=== PATIENT | male | born 1960 | race African-American/Black ===

== ENCOUNTER 2020-05-03 18:47 | Emergency (ER) | payer OTHER ==
[~2020-05-03] VITALS: Ht 180.3 cm; Wt 73.5 kg
[2020-05-03 19:25] VITALS: BP 134/100
--- NOTE | 2020-05-03 20:03 | Diagnostic Imaging Report ---
EXAM: XR Chest, 1 View CLINICAL HISTORY: COUGH TECHNIQUE: Frontal view of the chest. COMPARISON: Chest radiograph 12/28/2014. FINDINGS: Lungs: Mild right basilar opacity. Pleural space: Unremarkable. No pneumothorax. Heart: Unremarkable. No cardiomegaly. Mediastinum: Unremarkable. Bones/joints: Median sternotomy changes. Upper abdomen: Redemonstration of multiple small rounded metallic densities overlying the chest and upper abdomen. IMPRESSION: Mild right basilar opacity may represent atelectasis and/or developing infectious/inflammatory process.
[2020-05-03 20:13] LABS: HEMATOCRIT 37.9 % (42.0-52.0); HEMOGLOBIN 14.1 G/DL (14.2-18.0); MEAN CORPUSCULAR VOLUME 91 FL (80-99); PLATELET COUNT 266 K/UL (150-450); RED BLOOD COUNT 4.16 M/UL (4.70-6.10); RED CELL DISTRIBUTION WIDTH 12.9 % (11.6-14.8); WHITE BLOOD COUNT 19.5 K/UL (4.8-10.8)
[2020-05-03] MEDS ORDERED: Azithromycin 500 MG in NS 275 ML IV ONE (21:00)
[2020-05-03] MEDS ORDERED: Albuterol/Ipratropium 3ml neb HHN ONE (21:00)
[2020-05-03] MEDS ORDERED: cefTRIAXone 1 GM in NS 55 ML IVPB ONE (21:00)
[2020-05-03 21:05] LABS: ALANINE AMINOTRANSFERASE 31 U/L (12-78); ALBUMIN 3.4 G/DL (3.4-5.0); ALBUMIN/GLOBULIN RATIO 0.8 (1.0-2.7); ALKALINE PHOSPHATASE 90 U/L (46-116); ANION GAP 8 mmol/L (5-15); ASPARTATE AMINO TRANSFERASE 21 U/L (15-37); BILIRUBIN,TOTAL 0.6 MG/DL (0.2-1.0); BLOOD UREA NITROGEN 10 mg/dL (7-18); CALCIUM 8.7 MG/DL (8.5-10.1); CARBON DIOXIDE 32 MMOL/L (21-32); CHLORIDE 93 MMOL/L (98-107); CKMB 0.8 NG/ML (0.0-3.6); CREATINE KINASE 102 U/L (26-308); CREATININE 1.1 MG/DL (0.55-1.30); PHOSPHORUS 2.9 MG/DL (2.5-4.9); SODIUM 133 MMOL/L (136-145)
[2020-05-03 21:06] LABS: POTASSIUM 2.7 MMOL/L (3.5-5.1)
[2020-05-03] MEDS ORDERED: Vancomycin 1.5 GM in NS 275 ML IVPB ONE (21:15)
--- NOTE | 2020-05-03 22:17 | Emergency Room Report ---
History of Present Illness General Chief Complaint: Flu Like Symptoms Source: Patient Present Illness HPI Patient is a 59-year-old male presents for increased generalized body aches and chills. Gradual onset of symptoms today. Reports having increased cough. He states he had increased body aches. Denies any vomiting or abdominal pain. History is markedly limited by poor historian. Allergies: Coded Allergies: No Known Allergies (Unverified , 12/28/14) COVID-19 Screening Contact w/high risk pt: No Experienced COVID-19 symptoms?: Yes COVID-19 Testing performed PROJ ENGINEER: No Patient History Past Medical History: see triage record Reviewed Nursing Documentation: PMH: Agreed; PSxH: Agreed Nursing Documentation-PMH Past Medical History: No Stated History Review of Systems All Other Systems: limited - Review of systems: Review systems is limited by patient's being a poor historian Physical Exam Vital Signs Date Time Temp Pulse Resp B/P (MAP) Pulse Ox O2 Delivery O2 Flow Rate FiO2 05/03/20 19:00 100.4 117 20 163/86 (111) 93 Room Air 05/03/20 20:59 21 Sp02 EP Interpretation: reviewed, normal General Appearance: normal inspection, alert, GCS 15 Head: atraumatic ENT: normal ENT inspection, hearing grossly normal, normal voice Neck: normal inspection, full range of motion, supple, no bony tend Respiratory: normal inspection, lungs clear, normal breath sounds, no respiratory distress, no retraction, no wheezing Cardiovascular #1: no edema, tachycardia, systolic murmur Gastrointestinal: normal inspection, normal bowel sounds, non tender, soft, no guarding, no hernia Genitourinary: no CVA tenderness Musculoskeletal: normal inspection, back normal, normal range of motion Neurologic: alert, motor strength/tone normal, front desk host III-XII nml as tested, oriented x3, responsive, speech normal, normal inspection Psychiatric: normal inspection, judgement/insight normal, mood/affect normal Skin: no rash Medical Decision Making Diagnostic Impression: Primary Impression: Acute febrile illness Additional Impressions: Sepsis Lactic acidosis Pneumonia Hypokalemia ER Course Patient present for generalized body aches and chills. Differential diagnosis include was not limited to coronavirus infection, pneumonia, endocarditis, urinary tract infection among others. Because of complexity of patient's case laboratory tests and imaging studies were ordered. Patient noted to have elevated white blood count 19,000 associated with elevated lactic acid level. Patient started IV fluids as well as IV antibiotics. EKG interpreted by nm showed sinus tachycardia without any acute ST or T wave changes noted. Chest x- ray read by radiology showed patchy right-sided infiltrate without evidence of pleural effusion. Patient was discussed with Dr. Porras at [facility]. Patient be transferred to [place] for further management. Coronavirus testing was negative. Patient was endorsed to Dr. Coles pending repeat lactic acid level. Labs Test 05/03/20 19:50 White Blood Count 19.5 K/UL (4.8-10.8) Red Blood Count 4.16 M/UL (4.70-6.10) Hemoglobin 14.1 G/DL (14.2-18.0) Hematocrit 37.9 % (42.0-52.0) Mean Corpuscular Volume 91 FL (80-99) Mean Corpuscular Hemoglobin 33.9 PG (27.0-31.0) Mean Corpuscular Hemoglobin Concent 37.2 G/DL (32.0-36.0) Red Cell Distribution Width 12.9 % (11.6-14.8) Platelet Count 266 K/UL (150-450) Mean Platelet Volume 7.9 FL (6.5-10.1) Neutrophils (%) (Auto) % (45.0-75.0) Lymphocytes (%) (Auto) % (20.0-45.0) Monocytes (%) (Auto) % (1.0-10.0) Eosinophils (%) (Auto) % (0.0-3.0) Basophils (%) (Auto) % (0.0-2.0) Sodium Level 133 MMOL/L (136-145) Potassium Level 2.7 MMOL/L (3.5-5.1) Chloride Level 93 MMOL/L (98-107) Carbon Dioxide Level 32 MMOL/L (21-32) Anion Gap 8 mmol/L (5-15) Blood Urea Nitrogen 10 mg/dL (7-18) Creatinine 1.1 MG/DL (0.55-1.30) Estimat Glomerular Filtration Rate > 60 mL/min (>60) Glucose Level 122 MG/DL (74-106) Lactic Acid Level 2.30 mmol/L (0.4-2.0) Calcium Level 8.7 MG/DL (8.5-10.1) Phosphorus Level 2.9 MG/DL (2.5-4.9) Magnesium Level 2.0 MG/DL (1.8-2.4) Total Bilirubin 0.6 MG/DL (0.2-1.0) Aspartate Amino Transf (AST/SGOT) 21 U/L (15-37) Alanine Aminotransferase (ALT/SGPT) 31 U/L (12-78) Alkaline Phosphatase 90 U/L (46-116) Total Creatine Kinase 102 U/L (26-308) Creatine Kinase MB 0.8 NG/ML (0.0-3.6) Creatine Kinase MB Relative Index 0.7 Troponin I 0.000 ng/mL (0.000-0.056) Total Protein 7.5 G/DL (6.4-8.2) Albumin 3.4 G/DL (3.4-5.0) Globulin 4.1 g/dL Albumin/Globulin Ratio 0.8 (1.0-2.7) Serum Alcohol 27 mg/dL EKG Diagnostic Results Rate: tachycardiac Last Vital Signs Date Time Temp Pulse Resp B/P (MAP) Pulse Ox O2 Delivery O2 Flow Rate FiO2 05/03/20 20:59 110 27 100 Room Air 21 105 28 99 05/03/20 19:25 100.4 134/100 Status: unchanged Disposition: SHORT-TERM HOSP Condition: Stable Referrals: NON PHYSICIAN (PCP) Xander Jamison MD May 03, 2020 22:17
[2020-05-03 22:30] VITALS: BP 124/62
[2020-05-03 22:45] LABS: BILIRUBIN, URINE NEGATIVE (NEGATIVE); GLUCOSE, URINE (UA) NEGATIVE (NEGATIVE); KETONES,URINE NEGATIVE (NEGATIVE); LEUKOCYTE ESTERASE ,URINE 2+ (NEGATIVE); NITRITE,URINE NEGATIVE (NEGATIVE); PH,URINE 6 (4.5-8.0); PROTEIN,URINE 1+ (NEGATIVE); UROBILINOGEN,URINE 4 MG/DL (0.0-1.0)
[2020-05-03 22:46] LABS: APPEARANCE,URINE SLIGHTLY CLOUDY; COLOR,URINE YELLOW
[2020-05-04 00:20] VITALS: BP 130/59
[2020-05-04] MEDS ORDERED: Acetaminophen 500mg (ES) tab ORAL ONE (00:30)
[2020-05-04 02:15] VITALS: BP 105/73
== END 2020-05-04 02:15 | disposition short-term general hospital (02) ==
LOC: EMR 19:20
DX: A41.9 Sepsis, unspecified organism (principal); J18.9 Pneumonia, unspecified organism; E87.2 Acidosis; E87.6 Hypokalemia; R00.0 Tachycardia, unspecified
CPT/HCPCS: 36415; 71045; 80053; 81003; 82550; 82553; 83605; 83735; 84100; 84484; 85007; 85025; 86710; 87040; 87086; 93005; 94640; 96361; 96365; 96367; 99284; G0480; J0456; J0696; J3370; J7030; J7050; U0002; J7620; J8499